=== PATIENT | male | born 1985 | race Caucasian/White ===

== ENCOUNTER → 2018-03-02 13:36 | Outpatient (CLI) | payer SELFPAY ==
[2018-03-02 14:13] LABS: Alanine Aminotransferase 53 U/L (12-78); Albumin Level 3.8 gm/dL (3.4-5.0); Albumin/Globulin Ratio 1.1 (1.1-1.8); Alkaline Phosphatase 85 U/L (46-116); Anion Gap 13.3 mEq/L (5-15); Aspartate Amino Transferase 29 U/L (15-37); Bilirubin,Total 0.1 mg/dL (0.2-1.0); Blood Urea Nitrogen 14 mg/dL (7-18); Carbon Dioxide 27 mmol/L (21.0-32.0); Chloride 110 mmol/L (98-107); Creatinine,Serum 0.95 mg/dL (0.70-1.30); Estimated Glomerular Filt Rate 92 ml/min (>60); GFR (African American) 112 ML/MIN (>60); Globulin 3.5 gm/dl (1.3-3.2); Glucose 113 mg/dL (74-106); Potassium 4.3 mmoL/L (3.5-5.1); Sodium 146 mmol/L (136-145); Total Protein,Serum 7.3 gm/dL (6.4-8.2)
[2018-03-02 14:42] LABS: Basophils % 0.3 % (0.1-2.0); Eosinophils # 0.1 K/mm3 (0.0-0.4); Hematocrit 46.3 % (42.0-52.0); Hemoglobin 14.3 g/dL (14.1-18.0); Lymphocytes # 1.6 K/mm3 (0.7-4.5); Lymphocytes % 29.5 K/mm3 (10-50); Mean Corpuscular HGB Conc 30.9 g/dL (31.8-35.4); Mean Corpuscular Hemoglobin 27.6 pg (27.0-31.2); Mean Corpuscular Volume 89.4 fl (80-94); Mean Platelet Volume 8.3 fl (7.4-10.4); Monocytes # 0.3 K/mm3 (0.1-1.0); Monocytes % 5.8 % (1.7-9.3); Neutrophils # 3.5 K/mm3 (1.8-7.8); Neutrophils % 63.3 % (37.0-80.0); Platelet Count 212 K/mm3 (142-424); Red Blood Count 5.18 M/mm3 (4.60-6.20); Red Cell Distribution Width 13.3 % (11.5-17.5); White Blood Count 5.5 K/mm3 (4.8-10.8)
== END ==
PROVIDERS: Visit Provider Otolaryngology
DX: Z01.812 Encounter for preprocedural laboratory examination (principal); K13.21 Leukoplakia of oral mucosa, including tongue
CPT/HCPCS: 36415; 80053; 85025

== ENCOUNTER 2021-08-07 10:55 | Emergency (ER) | payer BC, SELFPAY ==
[2021-08-07] VITALS (7 sets, daily range): BP systolic 114–142; BP diastolic 72–87; PULSE 82–99; RESP 18–20; TEMP 36.8; O2SAT 95–98; BMI 41.2
--- NOTE | 2021-08-07 11:18 | XR_ITS ---
PROCEDURE: XR CHEST PORTABLE CLINICAL HISTORY: cough COMPARISON: No exams were available for comparison FINDINGS: The cardiomediastinal silhouette and pulmonary vascularity are within normal limits. The lungs are clear without infiltrates, suspicious nodules, or pleural effusions. No acute bony abnormalities. IMPRESSION: No acute findings. Dictated by: Yo Garrison MD 08/07/2021 11:47 Yo Garrison MD in [place] 08/07/2021 11:47
[2021-08-07 11:52] LABS: Chloride 103 mmol/L (98-107); Sodium 142 mmol/L (136-145)
[2021-08-07 11:53] LABS: Potassium 4.6 mmoL/L (3.5-5.1)
[2021-08-07 11:55] LABS: Alanine Aminotransferase 44 U/L (12-78); Albumin Level 4.4 g/dl (3.5-5.0); Albumin/Globulin Ratio 1.3 (1.1-1.8); Alkaline Phosphatase 85 U/L (38-126); Anion Gap 16.6 mEq/L (5-15); Aspartate Amino Transferase 35 U/L (17-59); Blood Urea Nitrogen 11 mg/dl (9-20); Calcium 9.1 mg/dl (8.4-10.2); Carbon Dioxide 27 mmol/L (22.0-30.0); Creatinine Clearance Estimated 198 mL/min (50-200); Estimated Glomerular Filt Rate 76 ml/min (>60); GFR (African American) 92 ML/MIN (>60); Globulin 3.5 g/dL (1.3-3.2); Glucose 124 mg/dl (74-100); Total Protein,Serum 7.9 g/dl (6.3-8.2)
[2021-08-07 11:56] LABS: Bilirubin,Total 0.1 mg/dl (0.2-1.3)
--- NOTE | 2021-08-07 12:23 | [facility].EDGENADL ---
ED Disposition Clinical Impression: Bronchitis due to COVID-19 virus Disposition: Home, Self-Care Condition on Discharge: Good Instructions: DI for COVID-19 (Suspected or Confirmed ) Prescriptions: Albuterol Sulfate [Albuterol Sulfate Hfa] 2 puff IH Q6 #1 each Prescription Printed Referrals: Adelso Melvin [Primary Care Provider] - - Critical Care Critical Care Time: No Attestation: On 08/07/21, the high probability of a clinically significant, sudden or life threatening deterioration of the following system(s) required my full and direct attention, intervention and personal management. The time I documented below is in addition to time spent performing reported procedures but includes the following listed in this critical care notation. Medical Decision Making - Medical Records Medical records reviewed: Yes: I reviewed the patient's medical records. - [place] Inquiry Pt receiving controlled substance: No Vital Signs: 08/07/21 10:55 Temperature 98.2 F Temperature Source Oral Pulse Rate [Right Radial] 99 H Respiratory Rate 18 Blood Pressure [Right Arm] 142/87 H Blood Pressure Mean [Right Arm] 105 Blood Pressure Source [Right Arm] Automatic Cuff Blood Pressure Position [Right Arm] Sitting 02 Sat by Pulse Oximetry 98 Oxygen Delivery Method Room Air - Lab Data Lab Results 08/07/21 11:40: WBC 5.0, RBC 5.74, Hgb 16.4, Hct 51.1, MCV 89.2, MCH 28.6, MCHC 32.1, RDW 13.2, Plt Count 179, MPV 8.3, Neut % (Auto) 65.8, Lymph % (Auto) 23.2, [place] % (Auto) 9.6 H, Eos % (Auto) 0.5, Baso % (Auto) 0.9, Neut # (Auto) 3.3, Lymph # (Auto) 1.1, [place] # (Auto) 0.5, Eos # (Auto) 0.0, Baso # (Auto) 0.1 08/07/21 11:40: Sodium 142, Potassium 4.6, Chloride 103, Carbon Dioxide 27, Anion Gap 16.6 H, BUN 11, Creatinine 1.10, Estimated Creat Clear 198, Estimated GFR 76, Est GFR ( Amer) 92, Glucose 124 H, Calcium 9.1, Total Bilirubin 0.1 L, AST 35, ALT 44, Alkaline Phosphatase 85, Total Protein 7.9, Albumin 4.4, Globulin 3.5 H, Albumin/Globulin Ratio 1.3 Result diagrams: 08/07/21 11:40 08/07/21 11:40 Orders (Tests/Meds): ED MEDICATIONS Discontinued Medications Generic Name Dose Route Start Last Admin Trade Name Channing PRN Reason Stop Dose Admin Acetaminophen 1,000 mg 08/07/21 11:18 08/07/21 12:18 Acetaminophen 500mg Tab PO 08/07/21 11:19 1,000 mg ONCE ONE Administration Dexamethasone Sodium Phosphate 10 mg 08/07/21 11:18 08/07/21 12:20 Dexamethasone 4mg/Ml 5ml Mdv IV 08/07/21 11:19 10 mg ONCE ONE Administration - Radiology Data #1 Image(s): Chest Image Reviewed: Yes I reviewed the patient's radiology results, Yes I reviewed the patient's radiology image, Yes I have reviewed radiologist's interpretation Preliminary Findings: Normal/NAD, No Infiltrates Seen - Reevaluation(s) Time: 12:54 Reevaluation #1: On reevaluation, the patient is feeling better. Again he is not requiring any supplemental oxygen. There is no evidence of respiratory distress or hypoxia. We did ambulate the patient and there was no compromise in his respiratory status. Monoclonal antibody is currently unavailable given statewide shortages. He was instructed to contact the hospital again tomorrow for possible scheduling as the state will be distributing doses going further. Patient needs to be reevaluated by PCP in 48 hours. Given strict return precautions for any change in symptoms. Verbalized understanding. Medical Decision Narrative: 36-year-old male presented to the emergency department with some shortness of breath. Patient recent diagnosis of coronavirus. Overall patient appears in good condition. Nontoxic. No respiratory distress. Work-up initiated. General Adult HPI - General Chief complaint: Shortness of Breath/Dyspnea Stated complaint: soa oxygen levels low Time Seen by Provider: 08/07/21 11:00 Mode of Arrival: Ambulatory Limitations: No Limitations Description of Symptoms (Recalled from
[2021-08-07 12:36] LABS: Basophils # 0.1 K/mm3 (0-0.2); Basophils % 0.9 % (0.1-2.0); Eosinophils % 0.5 % (0.1-12.0); Hematocrit 51.1 % (42.0-52.0); Hemoglobin 16.4 g/dL (14.1-18.0); Lymphocytes # 1.1 K/mm3 (0.7-4.5); Lymphocytes % 23.2 % (10-50); Mean Corpuscular HGB Conc 32.1 g/dL (31.8-35.4); Mean Corpuscular Hemoglobin 28.6 pg (27.0-31.2); Mean Corpuscular Volume 89.2 fl (80-94); Mean Platelet Volume 8.3 fl (7.4-10.4); Monocytes # 0.5 K/mm3 (0.1-1.0); Monocytes % 9.6 % (1.7-9.3); Neutrophils # 3.3 K/mm3 (1.8-7.8); Neutrophils % 65.8 % (37.0-80.0); Platelet Count 179 K/mm3 (142-424); Red Blood Count 5.74 M/mm3 (4.60-6.20); Red Cell Distribution Width 13.2 % (11.5-17.5)
== END 2021-08-07 13:05 | disposition home or self-care (01) ==
PROVIDERS: Emergency Provider Emergency Medicine; PCP Internal Medicine
DX: U07.1 COVID-19 (principal); J20.9 Acute bronchitis, unspecified
CPT/HCPCS: 71045; 80053; 85025; 96374; 99282

== ENCOUNTER → 2021-08-12 15:57 | Outpatient (CLI) | payer BC, SELFPAY ==
[2021-08-12] VITALS (8 sets, daily range): BP systolic 105–131; BP diastolic 65–93; PULSE 95–106; RESP 16–20; TEMP 36.9; O2SAT 94–97
== END | disposition home or self-care (01) ==
PROVIDERS: PCP Emergency Medicine; Visit Provider Emergency Medicine
DX: U07.1 COVID-19 (principal)
CPT/HCPCS: 96365

== ENCOUNTER → 2021-09-26 16:28 | Outpatient (CLI) | payer BC, SELFPAY ==
[2021-09-26 16:43] LABS: Basophils # 0.1 K/mm3 (0-0.2); Basophils % 0.7 % (0.1-2.0); Eosinophils # 0.1 K/mm3 (0.0-0.4); Eosinophils % 1.4 % (0.1-12.0); Hematocrit 47.1 % (42.0-52.0); Hemoglobin 14.7 g/dL (14.1-18.0); Lymphocytes # 2.2 K/mm3 (0.7-4.5); Lymphocytes % 30.3 % (10-50); Mean Corpuscular HGB Conc 31.2 g/dL (31.8-35.4); Mean Corpuscular Hemoglobin 27.8 pg (27.0-31.2); Mean Corpuscular Volume 89.1 fl (80-94); Monocytes # 0.5 K/mm3 (0.1-1.0); Monocytes % 6.4 % (1.7-9.3); Neutrophils # 4.5 K/mm3 (1.8-7.8); Neutrophils % 61.2 % (37.0-80.0); Platelet Count 242 K/mm3 (142-424); Red Blood Count 5.28 M/mm3 (4.60-6.20); Red Cell Distribution Width 14.4 % (11.5-17.5); White Blood Count 7.3 K/mm3 (4.8-10.8)
[2021-09-26 18:12] LABS: Alanine Aminotransferase 36 U/L (12-78); Albumin Level 4.5 g/dl (3.5-5.0); Albumin/Globulin Ratio 1.8 (1.1-1.8); Alkaline Phosphatase 68 U/L (38-126); Anion Gap 10.9 mEq/L (5-15); Aspartate Amino Transferase 34 U/L (17-59); Bilirubin,Total 0.3 mg/dl (0.2-1.3); Blood Urea Nitrogen 15 mg/dl (9-20); Carbon Dioxide 28 mmol/L (22.0-30.0); Chloride 105 mmol/L (98-107); Chol/HDL Ratio 3.2 (1-3.5); Cholesterol 166 mg/dl (140-200); Estimated Glomerular Filt Rate 96 ml/min (>60); GFR (African American) 116 ML/MIN (>60); Globulin 2.5 g/dL (1.3-3.2); Glucose 91 mg/dl (74-100); HDL Cholesterol 52 mg/dl (40-60); Potassium 4.9 mmoL/L (3.5-5.1); Sodium 139 mmol/L (136-145); Triglycerides 71 mg/dl (30-150); VLDL Cholesterol 14 mg/dL (0-40)
[2021-09-26 18:23] LABS: Direct LDL Cholesterol 97.47 mg/dL (100-129)
[2021-09-26 18:44] LABS: Thyroid Stimulating Hormone 2.96 uIU/mL (0.465-4.68)
== END ==
PROVIDERS: Visit Provider Internal Medicine
DX: R42 Dizziness and giddiness (principal); I10 Essential (primary) hypertension; E78.5 Hyperlipidemia, unspecified; R73.01 Impaired fasting glucose; H93.13 Tinnitus, bilateral
CPT/HCPCS: 80053; 80061; 84443; 85025

== ENCOUNTER → 2021-10-27 17:55 | Outpatient (CLI) | payer BC, SELFPAY ==
[2021-10-27 19:39] LABS: Anion Gap 10.8 mEq/L (5-15); Blood Urea Nitrogen 22 mg/dl (9-20); Calcium 9.4 mg/dl (8.4-10.2); Carbon Dioxide 27 mmol/L (22.0-30.0); Chloride 101 mmol/L (98-107); Estimated Glomerular Filt Rate 85 ml/min (>60); GFR (African American) 103 ML/MIN (>60); Glucose 90 mg/dl (74-100); Potassium 3.8 mmoL/L (3.5-5.1); Sodium 135 mmol/L (136-145)
== END ==
PROVIDERS: Visit Provider Internal Medicine
DX: I10 Essential (primary) hypertension (principal); E78.5 Hyperlipidemia, unspecified; R73.01 Impaired fasting glucose
CPT/HCPCS: 80048

== ENCOUNTER → 2022-06-05 12:10 | Outpatient (CLI) | payer BC, SELFPAY ==
--- NOTE | 2022-06-05 12:17 | XR_ITS ---
FINAL REPORT CLINICAL HISTORY: LT LATERAL FOOT PAIN X 6MONTHS,MID 5TH METATORSAL FINDINGS: LEFT FOOT Three views were obtained. There is no acute fracture or dislocation. The joint spaces appear normal. No soft tissue abnormality is identified. IMPRESSION: No acute process. Reviewed, Interpreted and Dictated by Sachin Marvin MD Transcribed by Viridiana Ware Authenticated and [facility]
== END ==
PROVIDERS: PCP Internal Medicine; Visit Provider Internal Medicine
DX: M79.672 Pain in left foot (principal)
CPT/HCPCS: 73630

== ENCOUNTER → 2022-06-15 08:05 | Outpatient (CLI) | payer BC, SELFPAY ==
--- NOTE | 2022-06-15 08:08 | MR_ITS ---
FINAL REPORT TECHNIQUE: Multiplanar and multisequence imaging of the right shoulder was obtained without contrast. CLINICAL HISTORY: BILATERAL SHOULDER PAIN. . WEAKNESS IN BOTH ARMS. SYMPTOMS FOR YEARS. NO RECENT INJURY OR TRAUMA. FINDINGS: Bones/Joint: Bone marrow signal intensity is normal. There is no fracture, edema, or pathologic marrow replacement. There is mild degenerative disease at the acromioclavicular joint. Rotator Cuff: There is no full thickness rotator cuff tear. There is no fatty atrophy of the rotator cuff musculature. Labrum: No labral tear is identified. The biceps labral complex is intact. The glenohumeral ligaments are intact. Other: The more distal biceps tendon is located within the bicipital groove. There is no joint effusion. Remaining soft tissues are within normal limits. IMPRESSION: No acute osseous abnormality, rotator cuff tendon tear, or convincing labral tear. Reviewed, Interpreted and Dictated by Inge Neves MD Transcribed by Meredith Nicolas Authenticated and [facility]
--- NOTE | 2022-06-15 08:08 | MR_ITS ---
FINAL REPORT TECHNIQUE: Multiplanar and multisequence imaging of the left shoulder was obtained without contrast. CLINICAL HISTORY: BILATERAL SHOULDER PAIN. WEAKNESS IN BOTH ARMS. SYMPTOMS FOR YEARS. NO RECENT INJURY OR TRAUMA. FINDINGS: Bones/Joint: Bone marrow signal intensity is normal. There is no fracture, edema, or pathologic marrow replacement. There is mild degenerative disease at the acromioclavicular joint. Rotator Cuff: There is no full thickness rotator cuff tear. There is no fatty atrophy of the rotator cuff musculature. Labrum: No labral tear is identified. The biceps labral complex is intact. There is mild thickening of the inferior glenohumeral ligament but no edema. The glenohumeral ligaments are intact. Other: The more distal biceps tendon is located within the bicipital groove. There is no joint effusion. Remaining soft tissues are within normal limits. IMPRESSION: No acute osseous abnormality, rotator cuff tendon tear, or convincing labral tear. Mild thickening of the inferior glenohumeral ligament, nonspecific. Reviewed, Interpreted and Dictated by Inge Neves MD Transcribed by Meredith Nicolas Authenticated and [facility]
== END ==
PROVIDERS: PCP Internal Medicine; Visit Provider Internal Medicine
DX: M25.512 Pain in left shoulder (principal); M25.511 Pain in right shoulder
CPT/HCPCS: 73221

== ENCOUNTER → 2022-11-02 17:21 | Outpatient (CLI) | payer BC, SELFPAY ==
[2022-11-02 19:30] LABS: Alanine Aminotransferase 62 U/L (12-78); Albumin Level 4.9 g/dl (3.5-5.0); Albumin/Globulin Ratio 1.8 (1.1-1.8); Alkaline Phosphatase 104 U/L (38-126); Anion Gap 15.6 mEq/L (5-15); Aspartate Amino Transferase 44 U/L (17-59); Bilirubin,Total 0.4 mg/dl (0.2-1.3); Blood Urea Nitrogen 17 mg/dl (9-20); Calcium 9.8 mg/dl (8.4-10.2); Carbon Dioxide 27 mmol/L (22.0-30.0); Chloride 103 mmol/L (98-107); Cholesterol 211 mg/dl (140-200); Estimated Glomerular Filt Rate 69 ml/min (>60); GFR (African American) 83 ML/MIN (>60); Globulin 2.8 g/dL (1.3-3.2); Glucose 79 mg/dl (74-100); HDL Cholesterol 53 mg/dl (40-60); Potassium 4.6 mmoL/L (3.5-5.1); Sodium 141 mmol/L (136-145); Total Protein,Serum 7.7 g/dl (6.3-8.2); Triglycerides 104 mg/dl (30-150); VLDL Cholesterol 21 mg/dL (0-40)
[2022-11-02 19:41] LABS: Direct LDL Cholesterol 133.15 mg/dL (100-129)
== END ==
PROVIDERS: PCP Internal Medicine; Visit Provider Internal Medicine
DX: E78.5 Hyperlipidemia, unspecified (principal)
CPT/HCPCS: 80053; 80061

== ENCOUNTER 2024-10-12 14:07 | Outpatient (CLI) | payer MEDICAID, SELFPAY ==
[2024-10-12 14:20] LABS: Basophils # 0.1 K/mm3 (0-0.2); Basophils % 0.6 % (0.1-2.0); Eosinophils # 0.1 K/mm3 (0.0-0.4); Eosinophils % 1.4 % (0.1-12.0); Hematocrit 44.7 % (42.0-52.0); Hemoglobin 14.7 g/dL (14.1-18.0); Lymphocytes # 2.2 K/mm3 (0.7-4.5); Lymphocytes % 23.7 % (10-50); Mean Corpuscular Hemoglobin 28.9 pg (27.0-31.2); Mean Corpuscular Volume 87.7 fl (80-94); Monocytes # 0.6 K/mm3 (0.1-1.0); Monocytes % 6.5 % (1.7-9.3); Neutrophils # 6.3 K/mm3 (1.8-7.8); Neutrophils % 67.8 % (37.0-80.0); Platelet Count 209 K/mm3 (142-424); White Blood Count 9.2 K/mm3 (4.8-10.8)
[2024-10-12 14:40] LABS: Albumin Level 4.1 g/dl (3.5-5.0); Chloride 106 mmol/L (98-107); Sodium 140 mmol/L (136-145)
[2024-10-12 14:41] LABS: Potassium 4.8 mmoL/L (3.5-5.1)
[2024-10-12 14:43] LABS: Alanine Aminotransferase 80 U/L (12-78); Albumin/Globulin Ratio 1.6 (1.1-1.8); Alkaline Phosphatase 77 U/L (38-126); Anion Gap 11.8 mEq/L (5-15); Aspartate Amino Transferase 43 U/L (17-59); Bilirubin,Total 0.4 mg/dl (0.2-1.3); Blood Urea Nitrogen 13 mg/dl (9-20); Carbon Dioxide 27 mmol/L (22.0-30.0); Cholesterol 190 mg/dl (140-200); Estimated Glomerular Filt Rate 84 ml/min (>60); GFR (African American) 101 ML/MIN (>60); Globulin 2.5 g/dL (1.3-3.2); Total Protein,Serum 6.6 g/dl (6.3-8.2); Triglycerides 206 mg/dl (30-150); VLDL Cholesterol 41 mg/dL (0-40)
[2024-10-12 14:44] LABS: Calcium 9.4 mg/dl (8.4-10.2); Chol/HDL Ratio 4.5 (1-3.5); Glucose 98 mg/dl (74-100); HDL Cholesterol 42 mg/dl (40-60)
[2024-10-12 15:00] LABS: Direct LDL Cholesterol 122.37 mg/dL (100-129)
[2024-10-12 15:12] LABS: Thyroid Stimulating Hormone 1.81 uIU/mL (0.465-4.68)
== END 2024-10-12 23:59 | disposition home or self-care (01) ==
LOC: LAB.DROPOF 14:07
PROVIDERS: PCP Internal Medicine; Visit Provider Internal Medicine
DX: E78.5 Hyperlipidemia, unspecified (principal); E66.01 Morbid (severe) obesity due to excess calories; Z68.43 Body mass index [BMI] 50.0-59.9, adult
CPT/HCPCS: 80050; 80053; 80061; 84443; 85025

== ENCOUNTER 2025-03-15 12:30 | Outpatient (CLI) | payer MEDICAID, SELFPAY ==
[2025-03-15 15:02] LABS: Basophils % 0.5 % (0.1-2.0); Eosinophils # 0.1 Kmm3 (0.0-0.4); Eosinophils % 1.7 % (0.1-12.0); Hematocrit 45.5 % (42.0-52.0); Hemoglobin 14.5 g/dL (14.1-18.0); Lymphocytes # 2.4 K/mm3 (0.7-4.5); Lymphocytes % 28.1 % (10-50); Mean Corpuscular HGB Conc 31.9 g/dL (31.8-35.4); Mean Corpuscular Hemoglobin 27.5 pg (27.0-31.2); Mean Corpuscular Volume 86.2 fl (80-94); Mean Platelet Volume 10.6 fl (7.4-10.4); Monocytes # 0.7 K/mm3 (0.1-1.0); Monocytes % 8.2 % (1.7-9.3); Neutrophils # 5.2 K/mm3 (1.8-7.8); Neutrophils % 61.3 % (37.0-80.0); Nucleated Red Blood Cells # 0 10^3/uL; Nucleated Red Blood Cells % 0 %; Platelet Count 248 K/mm3 (142-424); Red Blood Count 5.28 M/mm3 (4.60-6.20); Red Cell Distribution Width 13.3 % (11.5-17.5); Red Cell Distribution Width-SD 42.1 fL; White Blood Count 8.4 K/mm3 (4.8-10.8)
[2025-03-15 15:41] LABS: Albumin Level 4.2 g/dl (3.5-5.0); Chloride 106 mmol/L (98-107); Potassium 4.8 mmoL/L (3.5-5.1); Sodium 139 mmol/L (136-145)
[2025-03-15 15:43] LABS: Alanine Aminotransferase 84 U/L (12-78); Aspartate Amino Transferase 50 U/L (17-59); Blood Urea Nitrogen 14 mg/dl (9-20); Estimated Glomerular Filt Rate 83 ml/min (>60); GFR (African American) 101 ML/MIN (>60)
[2025-03-15 15:44] LABS: Albumin/Globulin Ratio 1.4 (1.1-1.8); Alkaline Phosphatase 85 U/L (38-126); Anion Gap 10.8 mEq/L (5-15); Bilirubin,Total 0.2 mg/dl (0.2-1.3); Calcium 9.2 mg/dl (8.4-10.2); Carbon Dioxide 27 mmol/L (22.0-30.0); Cholesterol 200 mg/dl (140-200); Creatine Kinase 150 U/L (55-170); Glucose 116 mg/dl (74-100); Total Protein,Serum 7.2 g/dl (6.3-8.2); Triglycerides 263 mg/dl (30-150); VLDL Cholesterol 53 mg/dL (0-40)
[2025-03-15 15:45] LABS: Chol/HDL Ratio 4.4 (1-3.5); HDL Cholesterol 45 mg/dl (40-60)
[2025-03-15 15:56] LABS: Direct LDL Cholesterol 116.82 mg/dL (100-129)
[2025-03-15 16:16] LABS: Thyroid Stimulating Hormone 1.58 uIU/mL (0.465-4.68)
[2025-03-15 16:26] LABS: Erythrocyte Sedimentation Rate 8 mm/hr (0-15)
[2025-03-20 08:13] LABS: Lyme B. burgdorferi PCR Blood Negative (Negative)
== END 2025-03-15 23:59 | disposition home or self-care (01) ==
LOC: LAB.DROPOF 03-16 10:09
PROVIDERS: PCP Internal Medicine; Visit Provider Internal Medicine
DX: R53.83 Other fatigue (principal); M79.10 Myalgia, unspecified site; E66.01 Morbid (severe) obesity due to excess calories; E78.5 Hyperlipidemia, unspecified; W57.XXXA Bitten or stung by nonvenomous insect and other nonvenomous arthropods, initial encounter
CPT/HCPCS: 80053; 80061; 82550; 84443; 85025; 85651; 87476